=== PATIENT | female | born 1980 | race Caucasian/White ===

== ENCOUNTER 2022-04-28 14:09 | Emergency (ER) | payer MEDICAID ==
[~2022-04-28] VITALS: Ht 167.6 cm; Wt 90.7 kg
--- NOTE | 2022-04-28 15:07 | NUR ---
Gave container for urine collection.
--- NOTE | 2022-04-28 15:20 | NUR ---
Urine collected, sent to the lab.
[2022-04-28 15:29] VITALS: BP_SYST 152
--- NOTE | 2022-04-28 15:34 | NUR ---
tPatient triaged and placed in waiting room. VSS and patient appears in no acute distress at this time. Accompanied by self, awaiting available bed, and MD notified of need for MSE.
--- NOTE | 2022-04-28 15:35 | NUR ---
Patient brought in from home complaing of non traumatic lower back pain that radiates to lower abdomen since yesterday worsening . Patient reports started yesterday and worsening. Patient states she is worried it is a urinary tract infection. Denies any heavy lifting or injury, fevers, chills, dysuria. nausea, vomiting.
[2022-04-28] MEDS ORDERED: ACETAMINOPHEN 500 MG TABLET PO ONE (16:00)
[2022-04-28] MEDS ORDERED: KETOROLAC TROMETHAMINE 60 MG/2 ML VIAL IM ONE (16:00)
[2022-04-28] MEDS ORDERED: CYCLOBENZAPRINE HCL 10 MG TABLET (FLEXERIL) PO ONE (16:00)
[2022-04-28] MEDS ORDERED: IBUP-1969 PO (16:03)
[2022-04-28] MEDS ORDERED: ACET-2634 PO (16:03)
[2022-04-28] MEDS ORDERED: CYCL10TA24 PO (16:03)
--- NOTE | 2022-04-28 16:52 | NUR ---
medicated per md orders.
[2022-04-28 16:57] LABS: BILIRUBIN,URINE NEGATIVE (NEGATIVE); CLARITY/URINE CLEAR (CLEAR); COLOR,URINE YELLOW (YELLOW); GLUCOSE,URINE NEGATIVE (NEGATIVE); KETONES,URINE NEGATIVE (NEGATIVE); LEUKOCYTE ESTERASE ,URINE TRACE (NEGATIVE); NITRITE, URINE NEGATIVE (NEGATIVE); PH,URINE 5.5 (5.0-8.0); PROTEIN URINE NEGATIVE (NEGATIVE); UROBILINOGEN,URINE 0.2 (0.2-1.0)
[2022-04-28 17:06] LABS: BLOOD, URINE TRACE (NEGATIVE)
[2022-04-28 17:07] LABS: BACTERIA,URINE FEW /HPF (None Seen); MUCUS,URINE None Seen /LPF (None Seen); RBC,URINE NONE SEEN /HPF (0-3)
[2022-04-28 17:19] VITALS: BP_SYST 132
--- NOTE | 2022-04-28 17:19 | NUR ---
Patient given written and verbal discharge instructions and verbalizes understanding. ER MD discussed with patient the results and treatment provided. Patient in stable condition. ID arm band removed. Rx of Tylenol xtra strength, flexeril, and ibuprofen given. Patient educated on pain management and to follow up with PMD. Pain Scale 0/10 Opportunity for questions provided and answered. Medication side effect fact sheet provided.
== END 2022-04-28 17:19 | disposition home or self-care (01) ==
LOC: SED 14:09
DX: M54.50 Low back pain, unspecified (principal); M62.838 Other muscle spasm
CPT/HCPCS: 81000; 81025; 96372; 99283; J1885